=== PATIENT | female | born 1930 | race Caucasian/White ===

== ENCOUNTER → 2018-12-22 | Outpatient (CLI) | payer MEDICARE | END | disposition home or self-care (01) | LOC: RADPV 11:41 | PROVIDERS: ATTEND Hospitalist | DX: R60.9 Edema, unspecified (principal) | CPT/HCPCS: 93971 ==

== ENCOUNTER 2019-03-09 13:38 | Inpatient (IN) | payer MEDICARE ==
[~2019-03-09] VITALS: Ht 147.3 cm; Wt 43.2 kg
[2019-03-09] MEDS ORDERED: FURO40 PO (14:14)
[2019-03-09] MEDS ORDERED: FERR-89 PO (14:14)
[2019-03-09] MEDS ORDERED: ASPI81 PO (14:14)
[2019-03-09] MEDS ORDERED: CLON.5 PO (14:14)
[2019-03-09] MEDS ORDERED: AMLO5TAB9 PO (14:14)
[2019-03-09] MEDS ORDERED: DOXA2TAB PO (14:14)
[2019-03-09] MEDS ORDERED: PATI8.4P PO (14:14)
[2019-03-09] MEDS ORDERED: CALC25 PO (14:14)
[2019-03-09] MEDS ORDERED: FLUO15CR2 TP (14:14)
[2019-03-09] MEDS ORDERED: LEVO75 PO (14:14)
[2019-03-09] MEDS ORDERED: ATOR40TA28 PO (14:14)
[2019-03-09] MEDS ORDERED: SEVE0.8P6 PO (14:14)
[2019-03-09] MEDS: CALCITRIOL 0.25 MCG CAPSULE PO SCH (15:34)
[2019-03-09] MEDS ORDERED: CefTRIAXone 1 GM/DEXTROSE 50 ML IV ONE (15:45)
[2019-03-09] MEDS: BUMETANIDE 0.25 MG/ML 4 ML VIAL IVP SCH ×2 (16:00→20:59)
[2019-03-09 16:15] LABS: BASOPHILS % (AUTO) 0.8 % (0.0-2.0); EOSINOPHILS % (AUTO) 0.4 % (1.0-6.0); HEMATOCRIT 25.1 % (36-46); HEMOGLOBIN 8.4 g/dL (12.0-16.0); LYMPHOCYTES # (AUTO) 0.5 K/uL (1.0-4.8); LYMPHOCYTES % (AUTO) 8.1 % (22.0-44.0); MEAN CORPUSCULAR HEMOGLOBIN 30.9 pg (26.0-34.0); MEAN CORPUSCULAR HGB CONC 33.4 G/dL (31.0-37.0); MEAN CORPUSCULAR VOLUME 92 fL (80-100); MONOCYTES # (AUTO) 0.4 K/uL (0.1-1.0); MONOCYTES % (AUTO) 7.8 % (2.0-9.0); NEUTROPHILS # (AUTO) 4.6 K/uL (1.8-7.7); NEUTROPHILS % (AUTO) 82.9 % (40.0-70.0); RED BLOOD CELL COUNT(AUTO) 2.71 MIL/uL (4.00-5.20); RED CELL DISTRIBUTION WIDTH 16.3 % (11.5-14.5)
[2019-03-09 16:51] LABS: BILIRUBIN,TOTAL 0.1 mg/dL (0.1-1.0); CALCIUM, TOTAL 9.2 mg/dL (8.8-10.5); CREATININE 3.15 mg/dL (0.60-1.30); MAGNESIUM 1.7 mg/dL (1.80-2.40); PHOSPHORUS 4.3 mg/dL (2.5-4.9); POTASSIUM 4.3 mmol/L (3.5-5.1); THYROID STIMULATING HORMONE 7.43 uIU/mL (0.36-3.74)
[2019-03-09 17:07] LABS: PLATELET COUNT (AUTO) 87 K/uL (150-450); PLATELET MORPHOLOGY COMMENT LARGE PLTS PRESENT
[2019-03-09 17:09] LABS: FREE T4 (FREE THYROXINE) 1.34 ng/dL (0.76-1.46)
[2019-03-09] MEDS ORDERED: ONDANSETRON HCL 4 MG/2 ML VIAL IVP PRN (17:30)
[2019-03-09] MEDS ORDERED: 0.9% SODIUM CHLORIDE 10 ML SYRINGE IVP PRN (17:30)
[2019-03-09] MEDS ORDERED: ACETAMINOPHEN 325 MG TABLET PO PRN (17:30)
[2019-03-09 19:02] VITALS: BP 161/79
[2019-03-09 20:49] VITALS: BP 148/72
[2019-03-09] MEDS: SEVELAMER CARBONATE 800 MG TABLET PO SCH (20:59)
[2019-03-09] MEDS ORDERED: DOCU100C33 PO (22:06)
[2019-03-09] MEDS ORDERED: SIME125C81 PO (22:06)
[2019-03-09] MEDS ORDERED: FISH1CAP27 PO (22:09)
[2019-03-09] MEDS ORDERED: UBID200C18 PO (22:11)
[2019-03-09] MEDS ORDERED: CALC200T42 PO (22:11)
[2019-03-10 00:15] VITALS: BP 145/69
[2019-03-10 05:23] VITALS: BP 141/67
[2019-03-10] MEDS: CALCITRIOL 0.25 MCG CAPSULE PO SCH (08:05)
[2019-03-10] MEDS: SEVELAMER CARBONATE 800 MG TABLET PO SCH ×3 (08:05→18:45)
[2019-03-10] MEDS: BUMETANIDE 0.25 MG/ML 4 ML VIAL IVP SCH ×2 (08:06→20:32)
[2019-03-10 08:23] VITALS: BP 107/53
[2019-03-10] MEDS ORDERED: SODIUM CHLORIDE 0.9% 250 ML IV ONE (10:20)
[2019-03-10] MEDS: CeFAZolin SODIUM 500 MG in DEXTROSE 5%-WATER 50 ML IV SCH ×2 (10:30→20:34)
[2019-03-10 11:26] LABS: BASOPHILS % (AUTO) 0.5 % (0.0-2.0); EOSINOPHILS % (AUTO) 0.6 % (1.0-6.0); HEMATOCRIT 26.3 % (36-46); HEMOGLOBIN 8.9 g/dL (12.0-16.0); LYMPHOCYTES # (AUTO) 0.4 K/uL (1.0-4.8); LYMPHOCYTES % (AUTO) 10.1 % (22.0-44.0); MEAN CORPUSCULAR HEMOGLOBIN 31.1 pg (26.0-34.0); MEAN CORPUSCULAR HGB CONC 33.7 G/dL (31.0-37.0); MEAN CORPUSCULAR VOLUME 92 fL (80-100); MONOCYTES # (AUTO) 0.4 K/uL (0.1-1.0); MONOCYTES % (AUTO) 10.7 % (2.0-9.0); NEUTROPHILS % (AUTO) 78.1 % (40.0-70.0); PLATELET COUNT (AUTO) 95 K/uL (150-450); RED BLOOD CELL COUNT(AUTO) 2.85 MIL/uL (4.00-5.20); RED CELL DISTRIBUTION WIDTH 16.4 % (11.5-14.5)
[2019-03-10 11:40] LABS: CALCIUM, TOTAL 8.9 mg/dL (8.8-10.5); CREATININE 3.25 mg/dL (0.60-1.30); POTASSIUM 4.1 mmol/L (3.5-5.1)
[2019-03-10 11:48] LABS: ALBUMIN 2.9 g/dL (3.4-5.0); BILIRUBIN,TOTAL 0.1 mg/dL (0.1-1.0)
[2019-03-10 12:00] VITALS: BP 153/79
[2019-03-10 12:27] LABS: APPEARANCE,URINE CLEAR (CLEAR); BILIRUBIN,URINE NEGATIVE (NEGATIVE); GLUCOSE, URINE (UA) NEGATIVE (NEGATIVE); KETONES,URINE NEGATIVE (NEGATIVE); LEUKOCYTE ESTERASE ,URINE NEGATIVE (NEGATIVE); NITRATE,URINE NEGATIVE (NEGATIVE); OCCULT BLOOD,URINE TRACE (NEGATIVE); PROTEIN,URINE POS 1+ (NEGATIVE); UROBILINOGEN,URINE 0.2 mg/dL (<=1.0)
[2019-03-10 12:39] LABS: BACTERIA,URINE None Seen /HPF (None Seen); SQUAMOUS EPITHELIAL CELL,UR Few /LPF (None Seen)
[2019-03-10 12:40] LABS: RBC,URINE 0-2 /HPF (0-2)
[2019-03-10] MEDS ORDERED: ONDANSETRON HCL 4 MG/2 ML VIAL IVP PRN (13:15)
[2019-03-10] MEDS ORDERED: ALBUTEROL SULFATE 2.5 MG/0.5 ML NEB SOLUTION NEB PRN (13:15)
[2019-03-10] MEDS ORDERED: IPRATROPIUM BROMIDE 0.5 MG/2.5 ML NEB SOLUTION NEB PRN (13:15)
[2019-03-10] MEDS ORDERED: AmLODIPine BESYLATE 5 MG TABLET PO SCH (13:15)
[2019-03-10] MEDS ORDERED: MAGNESIUM HYDROXIDE SUSPENSION 30 ML UDCUP PO PRN (13:15)
[2019-03-10] MEDS ORDERED: MORPHINE SULFATE 2 MG/ML SYRINGE IVP PRN (13:15)
[2019-03-10] MEDS ORDERED: ACETAMINOPHEN 325 MG TABLET PO PRN (13:15)
[2019-03-10] MEDS ORDERED: ZOLPIDEM TARTRATE 5 MG TABLET PO PRN (13:15)
[2019-03-10] MEDS ORDERED: BISACODYL 10 MG RECTAL RECTAL SUPPOSITORY PR PRN (13:15)
[2019-03-10] MEDS: FERROUS SULFATE 325 MG EC TABLET PO SCH (15:26)
[2019-03-10] MEDS: LEVOTHYROXINE SODIUM 75 MCG TABLET PO SCH (15:26)
[2019-03-10] MEDS: ASPIRIN 81 MG CHEWABLE TABLET PO SCH (15:27)
[2019-03-10] MEDS: ATORVASTATIN CALCIUM 40 MG TABLET PO SCH (15:27)
[2019-03-10] MEDS: DOCUSATE SODIUM 100 MG CAPSULE PO SCH ×3 (15:27→20:34)
[2019-03-10 15:40] VITALS: BP 155/71
[2019-03-10] MEDS ORDERED: HEPARIN SODIUM,PORCINE 5,000 UNITS/ML VIAL SQ SCH (16:00)
[2019-03-10 19:35] VITALS: BP 152/72
[2019-03-10] MEDS: ClonazePAM 0.5 MG TABLET PO SCH (20:32)
[2019-03-10] MEDS: DOXAZOSIN MESYLATE 2 MG TABLET PO SCH (20:33)
[2019-03-10] MEDS: HYDROCODONE/ACETAMINOPHEN 5-325 MG TABLET PO PRN (20:39)
[2019-03-10] MEDS ORDERED: DOXAZOSIN MESYLATE 2 MG TABLET PO SCH (21:00)
[2019-03-11 00:15] VITALS: BP 146/68
[2019-03-11] MEDS ORDERED: INFLUENZA VIRUS VACCINE QVS 2019-20 (3YR+)/PF 60 MCG/0.5 ML SYRINGE IM ONE (06:15)
[2019-03-11] MEDS: LEVOTHYROXINE SODIUM 75 MCG TABLET PO SCH (06:17)
[2019-03-11 07:20] LABS: BASOPHILS % (AUTO) 0.7 % (0.0-2.0); EOSINOPHILS % (AUTO) 1.5 % (1.0-6.0); HEMATOCRIT 24.5 % (36-46); HEMOGLOBIN 8.2 g/dL (12.0-16.0); LYMPHOCYTES # (AUTO) 0.6 K/uL (1.0-4.8); LYMPHOCYTES % (AUTO) 14.9 % (22.0-44.0); MEAN CORPUSCULAR HEMOGLOBIN 30.9 pg (26.0-34.0); MEAN CORPUSCULAR HGB CONC 33.5 G/dL (31.0-37.0); MEAN CORPUSCULAR VOLUME 92 fL (80-100); MONOCYTES # (AUTO) 0.6 K/uL (0.1-1.0); MONOCYTES % (AUTO) 15.5 % (2.0-9.0); NEUTROPHILS # (AUTO) 2.8 K/uL (1.8-7.7); NEUTROPHILS % (AUTO) 67.4 % (40.0-70.0); PLATELET COUNT (AUTO) 89 K/uL (150-450); RED BLOOD CELL COUNT(AUTO) 2.67 MIL/uL (4.00-5.20); RED CELL DISTRIBUTION WIDTH 16.7 % (11.5-14.5)
[2019-03-11 07:41] LABS: ALBUMIN 2.5 g/dL (3.4-5.0); BILIRUBIN,TOTAL 0.2 mg/dL (0.1-1.0); CALCIUM, TOTAL 8.6 mg/dL (8.8-10.5); CREATININE 3.25 mg/dL (0.60-1.30); POTASSIUM 4.1 mmol/L (3.5-5.1); TOTAL PROTEIN, SERUM 5.3 g/dL (6.4-8.2)
[2019-03-11 08:05] VITALS: BP 147/64
[2019-03-11] MEDS: DOCUSATE SODIUM 100 MG CAPSULE PO SCH ×5 (09:00→22:48)
[2019-03-11] MEDS: FERROUS SULFATE 325 MG EC TABLET PO SCH (09:18)
[2019-03-11] MEDS: CALCITRIOL 0.25 MCG CAPSULE PO SCH (09:19)
[2019-03-11] MEDS: ATORVASTATIN CALCIUM 40 MG TABLET PO SCH (09:19)
[2019-03-11] MEDS: ASPIRIN 81 MG CHEWABLE TABLET PO SCH (09:19)
[2019-03-11] MEDS: SEVELAMER CARBONATE 800 MG TABLET PO SCH ×3 (09:20→16:31)
[2019-03-11] MEDS: CeFAZolin SODIUM 500 MG in DEXTROSE 5%-WATER 50 ML IV SCH (09:20)
[2019-03-11] MEDS: BUMETANIDE 0.25 MG/ML 4 ML VIAL IVP SCH ×2 (09:35→20:18)
[2019-03-11 13:05] VITALS: BP 168/75
[2019-03-11] MEDS: SOD FERRIC GLUC COMPLX/SUCROSE 125 MG in SODIUM CHLORIDE 0.9% 100 ML IV SCH (13:10)
[2019-03-11] MEDS: HYDROCODONE/ACETAMINOPHEN 5-325 MG TABLET PO PRN (14:12)
[2019-03-11 15:47] VITALS: BP 154/68
[2019-03-11 20:13] VITALS: BP 141/77
[2019-03-11] MEDS: ClonazePAM 0.5 MG TABLET PO SCH (20:18)
[2019-03-11] MEDS: DOXAZOSIN MESYLATE 2 MG TABLET PO SCH (22:48)
[2019-03-11 23:34] VITALS: BP 139/70
[2019-03-12 04:00] VITALS: BP 144/68
[2019-03-12 05:51] LABS: BASOPHILS % (AUTO) 1.1 % (0.0-2.0); EOSINOPHILS % (AUTO) 2.3 % (1.0-6.0); HEMATOCRIT 27.4 % (36-46); HEMOGLOBIN 9.2 g/dL (12.0-16.0); LYMPHOCYTES # (AUTO) 0.7 K/uL (1.0-4.8); LYMPHOCYTES % (AUTO) 20.3 % (22.0-44.0); MEAN CORPUSCULAR HGB CONC 33.6 G/dL (31.0-37.0); MEAN CORPUSCULAR VOLUME 92 fL (80-100); MONOCYTES # (AUTO) 0.5 K/uL (0.1-1.0); MONOCYTES % (AUTO) 16.3 % (2.0-9.0); PLATELET COUNT (AUTO) 102 K/uL (150-450); RED BLOOD CELL COUNT(AUTO) 2.97 MIL/uL (4.00-5.20); RED CELL DISTRIBUTION WIDTH 16.6 % (11.5-14.5)
[2019-03-12 06:19] LABS: ALBUMIN 2.7 g/dL (3.4-5.0); BILIRUBIN,TOTAL 0.2 mg/dL (0.1-1.0); CALCIUM, TOTAL 9.1 mg/dL (8.8-10.5); CREATININE 3.38 mg/dL (0.60-1.30); POTASSIUM 4.2 mmol/L (3.5-5.1); TOTAL PROTEIN, SERUM 5.8 g/dL (6.4-8.2)
[2019-03-12] MEDS: LEVOTHYROXINE SODIUM 75 MCG TABLET PO SCH (07:14)
[2019-03-12 07:44] VITALS: BP 139/69
[2019-03-12] MEDS: ATORVASTATIN CALCIUM 40 MG TABLET PO SCH (08:48)
[2019-03-12] MEDS: DOCUSATE SODIUM 100 MG CAPSULE PO SCH ×4 (08:48→20:25)
[2019-03-12] MEDS: CeFAZolin SODIUM 500 MG in DEXTROSE 5%-WATER 50 ML IV SCH ×2 (08:48→20:24)
[2019-03-12] MEDS: ASPIRIN 81 MG CHEWABLE TABLET PO SCH (08:49)
[2019-03-12] MEDS: FERROUS SULFATE 325 MG EC TABLET PO SCH (08:49)
[2019-03-12] MEDS: SEVELAMER CARBONATE 800 MG TABLET PO SCH ×3 (08:49→17:19)
[2019-03-12] MEDS: CALCITRIOL 0.25 MCG CAPSULE PO SCH (08:49)
[2019-03-12] MEDS: BUMETANIDE 0.25 MG/ML 10 ML VIAL IV SCH ×2 (08:50→20:24)
[2019-03-12] MEDS ORDERED: CALCITRIOL 0.25 MCG CAPSULE PO SCH (09:00)
[2019-03-12] MEDS: SOD FERRIC GLUC COMPLX/SUCROSE 125 MG in SODIUM CHLORIDE 0.9% 100 ML IV SCH (11:24)
[2019-03-12 11:37] VITALS: BP 147/65
[2019-03-12] MEDS: HYDROCODONE/ACETAMINOPHEN 5-325 MG TABLET PO PRN (16:01)
[2019-03-12 16:22] VITALS: BP 139/65
[2019-03-12] MEDS: ClonazePAM 0.5 MG TABLET PO SCH (20:24)
[2019-03-12] MEDS: DOXAZOSIN MESYLATE 2 MG TABLET PO SCH (20:25)
[2019-03-12] MEDS ORDERED: SODIUM CHLORIDE 0.9% 500 ML IV ONE (20:30)
[2019-03-12 20:52] VITALS: BP 143/72
[2019-03-13 00:28] VITALS: BP 135/57
[2019-03-13 05:23] VITALS: BP 142/66
[2019-03-13] MEDS: LEVOTHYROXINE SODIUM 75 MCG TABLET PO SCH (06:06)
[2019-03-13 07:01] LABS: BASOPHILS % (AUTO) 0.8 % (0.0-2.0); EOSINOPHILS % (AUTO) 1.5 % (1.0-6.0); HEMATOCRIT 25.1 % (36-46); HEMOGLOBIN 8.4 g/dL (12.0-16.0); LYMPHOCYTES # (AUTO) 0.8 K/uL (1.0-4.8); LYMPHOCYTES % (AUTO) 14.9 % (22.0-44.0); MEAN CORPUSCULAR HEMOGLOBIN 31.1 pg (26.0-34.0); MEAN CORPUSCULAR HGB CONC 33.4 G/dL (31.0-37.0); MEAN CORPUSCULAR VOLUME 93 fL (80-100); MONOCYTES # (AUTO) 0.6 K/uL (0.1-1.0); MONOCYTES % (AUTO) 12.2 % (2.0-9.0); NEUTROPHILS # (AUTO) 3.7 K/uL (1.8-7.7); NEUTROPHILS % (AUTO) 70.6 % (40.0-70.0); PLATELET COUNT (AUTO) 107 K/uL (150-450); RED CELL DISTRIBUTION WIDTH 16.3 % (11.5-14.5)
[2019-03-13 07:25] LABS: ALBUMIN 2.4 g/dL (3.4-5.0); BILIRUBIN,TOTAL 0.1 mg/dL (0.1-1.0); CREATININE 3.46 mg/dL (0.60-1.30); POTASSIUM 4.4 mmol/L (3.5-5.1); TOTAL PROTEIN, SERUM 5.2 g/dL (6.4-8.2)
[2019-03-13 08:00] VITALS: BP 155/82
[2019-03-13] MEDS: ATORVASTATIN CALCIUM 40 MG TABLET PO SCH (09:17)
[2019-03-13] MEDS: CeFAZolin SODIUM 500 MG in DEXTROSE 5%-WATER 50 ML IV SCH (09:17)
[2019-03-13] MEDS: BUMETANIDE 0.25 MG/ML 10 ML VIAL IV SCH (09:18)
[2019-03-13] MEDS: FERROUS SULFATE 325 MG EC TABLET PO SCH (09:18)
[2019-03-13] MEDS: SEVELAMER CARBONATE 800 MG TABLET PO SCH ×2 (09:18→11:59)
[2019-03-13] MEDS: ASPIRIN 81 MG CHEWABLE TABLET PO SCH (09:18)
[2019-03-13] MEDS: DOCUSATE SODIUM 100 MG CAPSULE PO SCH ×2 (09:18→15:13)
[2019-03-13] MEDS: CALCITRIOL 0.25 MCG CAPSULE PO SCH (09:18)
[2019-03-13] MEDS: SOD FERRIC GLUC COMPLX/SUCROSE 125 MG in SODIUM CHLORIDE 0.9% 100 ML IV SCH (10:57)
[2019-03-13 11:50] VITALS: BP 143/62
[2019-03-13] MEDS ORDERED: EPOETIN ALFA 10,000 UNITS/ML VIAL SQ ONE (13:00)
== END 2019-03-13 15:45 | DRG 603 ==
LOC: EMS 13:39 → 4E 17:43
PROVIDERS: ADMIT Hospitalist; ATTEND Hospitalist
DX: L03.115 Cellulitis of right lower limb (principal); N18.4 Chronic kidney disease, stage 4 (severe); E44.0 Moderate protein-calorie malnutrition; D61.818 Other pancytopenia; Z68.1 Body mass index [BMI] 19.9 or less, adult; E87.1 Hypo-osmolality and hyponatremia; E87.5 Hyperkalemia; I12.9 Hypertensive chronic kidney disease with stage 1 through stage 4 chronic kidney disease, or unspecified chronic kidney disease; E03.9 Hypothyroidism, unspecified; M81.0 Age-related osteoporosis without current pathological fracture; K59.00 Constipation, unspecified; D63.8 Anemia in other chronic diseases classified elsewhere; E21.3 Hyperparathyroidism, unspecified; E78.00 Pure hypercholesterolemia, unspecified; M41.9 Scoliosis, unspecified; Z79.899 Other long term (current) drug therapy; Z85.3 Personal history of malignant neoplasm of breast; Z85.820 Personal history of malignant melanoma of skin; Z28.21 Immunization not carried out because of patient refusal
CPT/HCPCS: 83605; 83735; 84100; 84439; 84443; 87040; 93005; 93306; 97116; 97162; G0378; J0690; J0696; J0885; J2916; J3490; J7040; J7050; J7060